=== PATIENT | male | born 2000 | race Hispanic/Latino ===

== ENCOUNTER 2019-06-18 18:32 | Emergency (ER) | payer BC ==
[~2019-06-18] VITALS: Ht 180.3 cm; Wt 158.8 kg
[2019-06-18 20:35] VITALS: BP 151/94
== END 2019-06-18 20:40 | disposition home or self-care (01) ==
LOC: ER 18:32
DX: M54.2 Cervicalgia (principal); M54.6 Pain in thoracic spine; S16.1XXA Strain of muscle, fascia and tendon at neck level, initial encounter; S29.012A Strain of muscle and tendon of back wall of thorax, initial encounter; V43.62XA Car passenger injured in collision with other type car in traffic accident, initial encounter; Y92.488 Other paved roadways as the place of occurrence of the external cause
CPT/HCPCS: 99282